=== PATIENT | male | born 2000 | race Hispanic/Latino ===

== ENCOUNTER 2024-11-30 09:35 | Outpatient (CLI) | payer OTHER, SELFPAY ==
--- NOTE | ~2024-11-30 | XR_ITS ---
EXAMINATION: XR knee RT 3V, 11/30/2024 9:51 CDT HISTORY: Pain in rt knee, NKI COMPARISON: No comparisons available. Findings: No acute fracture or malalignment. No significant degenerative changes. Soft tissues unremarkable. Impression: No acute fracture or malalignment. Reviewed, dictated and finalized at location P. Impression: No acute fracture or malalignment.
--- OUTSIDE RECORDS SUMMARY | 2024-11-30 10:28 | XMS_ITS | Clinical Summary ---
Author Organization [facility] Address [address] [place] [address] Care Team Providers Care Radiochemical Technician Name Role Phone Kvng Pierce Primary Care Provider Quintin schaeffer Source Comments [facility],non-owned Affiliates and Associated Physician Practices is amultiple site organization consisting of ambulatory clinics and hospital sitesin [place], [place], [place] and [place]. This disclosure is being madepursuant to the Care Everywhere program and may not contain all information available regarding this patient. Last updated 17.[facility] Allergies No known active allergies Family History Medical History Relation Name Comments Arrhythmia Neg Hx CVA<55(male) Neg Hx CVA<65(female) Neg Hx Cardiomyopathy Neg Hx Congenital Heart defect Neg Hx Heart Surgery Neg Hx Long QT Syndrome Neg Hx AK<55(male) Neg Hx AK<65(female) Neg Hx Marfan Syndrome Neg Hx Pacemaker Neg Hx Sudd. <30 Neg Hx Social History Tobacco Use Types Packs/Day Years Used Date Smoking Tobacco: Never Assessed Alcohol Use Standard Drinks/Week Comments No 0 (1 standard drink = 0.6 oz pur e alcohol) Sex and Gender Information Value Date Recorded Sex Assigned at Not on file Legal Sex Male 1:21 PM WAITER/WAITRESS BAR Gender Identity Not on file Sexual Orientation Not on file Last Filed Vital Signs Vital Sign Reading Time Taken Comments Blood Pressure 96/58 01/01/2013 9:39 AM WAITER/WAITRESS BAR Pulse 68 01/01/2013 9:39 AM WAITER/WAITRESS BAR Temperature - - Respiratory Rate 24 01/01/2013 9:39 AM WAITER/WAITRESS BAR Oxygen Saturation 100% 01/01/2013 9:39 AM WAITER/WAITRESS BAR Inhaled Oxygen Concentration - - Weight 48 kg (105 lb 13.1 oz) 01/01/2013 9:39 AM WAITER/WAITRESS BAR Height 157 cm (5' 1.81) 01/01/2013 9:39 AM WAITER/WAITRESS BAR Body Mass Index 19.47 01/01/2013 9:39 AM WAITER/WAITRESS BAR Plan of Treatment Health Maintenance Due Date Last Done Comments HIV SCREENING 2016 HPV VACCINE (1 - Male 3-dose series) 2016 MENINGOCOCCAL (Group B) VACC INE SHARED DECISION-MAKING (1 of 2 - Standard) 2017 HEPATITIS C SCREENING 05/28/2019 DTAP/TDAP/TD VACCINES (1 - Tdap) 2020 HEPATITIS B VACCINE (1 of 3 - 19+ 3-dose series) 2020 DEPRESSION SCREENING 02/19/2024 COVID-19 VACCINE (1 - 2023-2 5 season) 2024 INFLUENZA VACCINE (#1) 2024 ZOSTER VACCINE (1 of 2) 06/02/2051 HIB VACCINE Aged Out No longer eligi ble based on patient's age to complete this topic MENINGOCOCCAL GROUPS A/C/Y/W VACCINE Aged Out No longer eligible b ased on patient's age to complete this topic PNEUMOCOCCAL VACCINE Aged Out No long er eligible based on patient's age to complete this topic Insurance MEDICAID - [place] Care Teams Radiochemical Technician Relationship Specialty Start Date End Date Kvng Pierce PCP - General Pediatrics 01/01/13
--- OUTSIDE RECORDS SUMMARY | 2024-11-30 10:28 | XMS_ITS | Clinical Summary ---
Author Organization [facility] Care Team Providers Care Ski Top Trimmer Name Role Phone Unavailable Primary Care Provider Unavailabl e Social History Tobacco Use Types Packs/Day Years Used Date Smoking Tobacco: Never Assessed Sex and Gender Information Value Date Recorded Sex Assigned at Not on file Legal Sex Male 9:03 AM COO Gender Identity Not on file Sexual Orientation Not on file Plan of Treatment Health Maintenance Due Date Last Done Comments Hepatitis C Virus (HCV) Screening 2001 Hepatitis B Immunization (3 of 3 - 3-dose series) 2001 2001, 2001 Meningococcal B Immunization (2 of 2 - Trumenba SCDM 2-dose series) 06/10/2020 12/11/2019 Influenza Immunization (#1) 10/19/202411/18, 12/05/2017, 11/07/2011 SARS-COV-2 Immunization (2024- season) 2024 02/12/2021, 06/09/2020, 05/11/2020 Respiratory Syncytial Virus (RSV) Immunization (Adult) (1 - 1-dose 75+ series) 2076 DTaP/Tdap/Td Immunization Discontinued 2013, 10/01/2005, 06/25/2003, Additional history exists TdaP Immunization Completed 09/30/2013 Human Papillomavirus (HPV) Immunization Completed 10/13/2013, 03/21/2011, 12/19/2010 Meningococcal Immunization (ACWY) Completed 10/11/2017, 09/30/2013 Pneumococcal Immunization Combined Aged Out No longer eligible based on patient's age to complete this topic Rotavirus Immunization Aged Out No lo nger eligible based on patient's age to complete this topic
== END 2024-11-30 09:36 | disposition home or self-care (01) ==
PROVIDERS: PCP Physician Assistant Medical; Visit Provider Physician Assistant Medical
DX: M25.561 Pain in right knee (principal)
CPT/HCPCS: 73562